=== PATIENT | male | born 1970 | race Caucasian/White ===

== ENCOUNTER → 2016-06-22 | Outpatient (CLI) | payer BC ==
[~2016-06-22] MED LIST: LAMO200T38 PO
--- NOTE | 2016-06-22 08:23 | DIAGNOSTIC IMAGING REPORT ---
MRI OF THE BRAIN WITHOUT AND WITH IV CONTRAST CLINICAL HISTORY: Meningioma. COMPARISON STUDY: MRI of the brain January 03, 2016. TECHNIQUE: Utilizing a 1.5 Traci magnet and dedicated coil, multiplanar, multiecho imaging of the brain was performed pre and postcontrast administration. IV administration of 9 mL of Gadavist contrast was uneventful. Thin cut postcontrast imaging was performed. FINDINGS: There are post surgical findings consistent with a right temporal craniotomy. Encephalomalacia within the right temporal lobe is again noted. The appearance of the resection cavity is unchanged since MRI December 24, 2015. Specifically, several enhancing nodules within the periphery of the operative bed are unchanged since prior exam. The largest is lateral to the right Meckel's cave, measuring 1.3 cm. No new nodules are identified. Numerous smaller nodules are also similar to exam of December 24, 2015. The ventricular system is stable. The basilar cisterns are patent. There are no extra-axial collections. Flow-voids for the major intracranial vessels are present. Calvarial signal is maintained. Orbits and sinuses are unremarkable. IMPRESSION: 1. No acute intracranial findings. 2. No significant change in enhancing dural based nodules along the periphery of the right temporal operative bed since MRI of January 03, 2016. The findings suggest stable residual/recurrent meningioma. Electronically signed by: Rc Payton M.D. 06/22/2016 8:22 AM Dictated Date/Time: 06/22/2016 8:02 AM
== END | disposition home or self-care (01) ==
LOC: C.MRI 07:08
PROVIDERS: ATTEND Internal Medicine
DX: D32.9 Benign neoplasm of meninges, unspecified (principal)

== ENCOUNTER → 2016-07-07 | Outpatient (CLI) | payer BC ==
[2016-07-07 14:55] VITALS: BP 126/73; PULSE 52; TEMP 36.3; O2SAT 100
--- NOTE | 2016-07-07 16:57 | Radiation Oncology Follow-Up ---
Radiation Oncology Follow-Up Date of Visit Jul 07, 2016. (Cristina Jefferson PA-C) Reason For Visit 6 month follow-up (Cristina Jefferson PA-C) Radiation Completion Date 12/09/10 (Cristina Jefferson PA-C) Diagnosis (1) Meningioma, recurrent of brain Stage: Not Applicable (Cristina Jefferson PA-C) History of Present Illness Mr. Adams is a 46-year-old male who presented with episodes of headache in the bilateral temporal region and right arm numbness. He said the headaches were occasionally associated with nausea and vomiting. The patient was seen by his eye doctor who noted on examination papilledema. The patient was seen by Dr. Montgomery for further evaluation and workup. The patient underwent an MRI which revealed a large right temporal mass measuring 8 x 5 x 6 cm. This enhancing mass was felt to be consistent with a glioblastoma multiforme. He was concern for midline shift and herniation. The patient was started on intravenous Decadron and was transferred to [facility] under the care of Dr. Hugo Cid. Dr. Gomes took the patient to the operating room on January 14, 2001 where he was able to perform a gross total resection of this mass. Grossly this had the appearance of a dural extra-axial meningioma. The lesion was excised using 3 dimensional biometric stereotactic localization procedures. Pathologic frozen section and permanent section confirmed a meningioma specimen [id number]. The patient did well until 2007 when he begin to experience seizures. He was started on Lamictal and the seizure disorder has been well-controlled since then with his last seizure in July 2008. The patient has been followed with annual MRI examinations. MRI of the brain on June 05, 2002 showed encephalomalacia changes at the base of the right temporal lobe. Post surgical changes but no evidence of recurrent disease. MRI of the brain on July 11, 2003 showed stable changes with no evidence of recurrent disease. MRI of the brain July 30, 2004 showed stable changes with encephalomalacia changes involving the right temporal horn extending into the temporal horn of the right lateral ventricle with retention cyst in the right maxillary sinus with no evidence of recurrence. MRI of the brain on June showed similar appearing picture with no evidence of recurrence. MRI of the brain on July 07, 2006 showed postsurgical changes with area of encephalomalacia. A 6.5 mm enhancing focus was noted at the medial base of the right temporal lobe abutting the sphenoid wing. This appeared to be slightly more prominent compared to the previous study, a year ago. This raised the question of possible early tumor recurrence. On June 21, 2007 the patient underwent a CT scan with and without contrast for vomiting and weakness. This showed postoperative changes and no acute changes. A repeat MRI of the brain on June 29, 2007 showed an equivocal slight increase in the size of the enhancing nodule at the base of the right medial temporal lobe abutting the sphenoid wing. This measured 6.9 mm in maximal dimension compared to 6.5 mm in June 2006. MRI of the brain on July 12, 2008 showed a peripheral probable dural based focus of enhancement at the right skull base in the area of the sphenoid wing, lateral to Meckel's cave. This is the area previously noted and showed interval increase in size and therefore felt to be suspicious for a small recurring meningioma at this level. A CT scan of the brain on July 18, 2008 following seizure showed no acute intracranial changes. MRI of the brain on July 04, 2009 showed a focal area of enhancement described previously, now measuring 8 mm likely representing evidence of recurrent meningioma. MRI of the brain July 30, 2010 showed a slight interval increase in the size of the lesion now measuring 1.2 cm , increased from a prior measurement and now stated at 1.0 cm. With this latest MRI. Dr. Cid was considering treatment options. Given the size, he felt that surgery was not necessary. He therefore suggested consideration of stereotactic radiotherapy. The patient was therefore seen by Dr. Levy who saw the patient in consultation on October 21, 2010. At their initial evaluation, the patient was felt to be a good candidate for definitive stereotactic radiosurgery. After extensive discussion with the patient and his they decided to proceed with treatment. As part of their treatment planning process a thin sliced MRI was performed the day of the planned procedure. This again showed postsurgical changes and right temporal encephalomalacia consistent with a history of craniotomy and surgery. There is a enhancing mass now measuring 1.6 x 1.2 x 1.2 cm seen along the inferior aspect of the anterior right middle cranial fossa. There is a thin linear band of hyperintensity which appears separate from this mass and extends from just anterior to the mass to the lesser wing of the sphenoid. This is difficult to determine whether or not these areas are enhancing without precontrasted imaging. However, given the history and location, these were felt these could be residual or recurrent meningiomas. After these images were carefully reviewed by the stereotactic team at [facility] it was felt that the patient in fact was not a candidate given the size and location of the lesion. He therefore contacted me on November 10 after reviewing this information with the patient and his to discuss his recommendation of conventional fractionated therapy with IMRT. He asked at that time if I would see the patient in consultation. He was treated with IMRT. Radiation was given from 12/09/2010 to 01/15/2011 he received 5400 cGy. (Cristina Jefferson PA-C) Interim History He has been doing well over the past month. He has not developed any new neurologic symptoms. He denies any problems with headaches or dizziness. He has had no change in vision. There has been no change in strength of the upper or lower extremities He continues to have the feeling of numbness of the left hand. This is well demarcated and starts in the middle of the forearm to the tips of his fingers. It happens approximate 2-4 times per month. This does not affect strength. He has reviewed this with his neurologist. In reviewing his documentation he feels these are partial seizures. He is on Lamictal and his levels are checked regularly. A follow-up MRI had been ordered through his primary care physician. This was performed on 06/22/2016. There were no acute intracranial findings. There is no significant change in the enhancing dural based nodules along the periphery of the right temporal operative bed since the MRI of 09/03/2015. Findings suggest stable recurrent/residual meningioma. Patient was aware of these results and has a CD to take to his next visit with Dr. Waterman. (Cristina Jefferson PA-C) Allergies Coded Allergies: No Known Allergies (Verified , 06/21/07) Home Medications Scheduled Lamotrigine (Lamictal), 200 MG PO BID Review of Systems Gastrointestinal: Symptoms: WNL Oral: Symptoms: No Problems Respiratory: Symptoms: WNL Urinary: Symptoms: WNL Skin: Symptoms: No Problems (Cristina Jefferson PA-C) Physical Exam Vital Signs Date Time Temp Pulse Resp B/P Pulse Ox O2 Delivery O2 Flow Rate FiO2 07/07/16 14:55 36.3 52 12 126/73 100 Pain: Patient Pain Scale: 0 - 10 Initial Pain Intensity: 0.0 Fatigue: None General Appearance: no apparent distress Eyes: normal inspection, PERRL, EOMI ENT: normal ENT inspection, hearing grossly normal Respiratory/Chest: lungs clear, no respiratory distress, no accessory muscle use Cardiovascular: regular rate, rhythm, no gallop, no murmur Neurologic/Psychiatric: private duty rn II-XII nml as tested, no motor/sensory deficits, alert, normal mood/affect Skin: warm/dry Lymphatic: no adenopathy (Cristina Jefferson PA-C) Additional Studies MRI OF THE BRAIN WITHOUT AND WITH IV CONTRAST CLINICAL HISTORY: Meningioma. COMPARISON STUDY: MRI of the brain January 03, 2016. TECHNIQUE: Utilizing a 1.5 Traci magnet and dedicated coil, multiplanar, multiecho imaging of the brain was performed pre and postcontrast administration. IV administration of 9 mL of Gadavist contrast was uneventful. Thin cut postcontrast imaging was performed. FINDINGS: There are post surgical findings consistent with a right temporal craniotomy. Encephalomalacia within the right temporal lobe is again noted. The appearance of the resection cavity is unchanged since MRI December 24, 2015. Specifically, several enhancing nodules within the periphery of the operative bed are unchanged since prior exam. The largest is lateral to the right Meckel's cave, measuring 1.3 cm. No new nodules are identified. Numerous smaller nodules are also similar to exam of December 24, 2015. The ventricular system is stable. The basilar cisterns are patent. There are no extra-axial collections. Flow-voids for the major intracranial vessels are present. Calvarial signal is maintained. Orbits and sinuses are unremarkable. IMPRESSION: 1. No acute intracranial findings. 2. No significant change in enhancing dural based nodules along the periphery of the right temporal operative bed since MRI of January 03, 2016. The findings suggest stable residual/recurrent meningioma. Electronically signed by: Rc Payton M.D. 06/22/2016 8:22 AM (Cristina Jefferson PA-C) Assessment & Plan Plan: The patient is also seen today by Dr. Roland. He reviewed the MRI images. These do appear stable. He'll continue follow-up with Dr. Waterman and Dr. Montgomery. A follow-up appointment with our office was not given. He may return if needed. He may call our office if he has any questions or concerns we'll be happy to see him. (Cristina Jefferson PA-C) I agree with note created by Cristina Jefferson PA-C. I reviewed the patient's chart and information with her. I have examined and evaluated the patient. I reviewed relevant clinical information and answered the patient's and/or family' s questions. (Veeral. Roland MD) Total Time In Follow-Up I spent 20 minutes speaking to the patient performing examination. I spent 15 minutes reviewing information completing this note. (Cristina Jefferson PA-C) I spent 15 minutes examining and counseling the patient. (Veeral. Roland MD) Copy To Landry Waterman M.D. (MEDICINE); Bertram Montgomery M.D.
== END | disposition home or self-care (01) ==
LOC: C.ONC 14:38
PROVIDERS: ATTEND Radiology Radiation Oncology
DX: Z08 Encounter for follow-up examination after completed treatment for malignant neoplasm (principal); Z92.3 Personal history of irradiation; Z85.841 Personal history of malignant neoplasm of brain

== ENCOUNTER → 2017-07-13 | Outpatient (CLI) | payer BC ==
[~2017-07-13] MED LIST changes: +GADAVIST IV PRN; +LAMO200T35 PO; -LAMO200T38 PO
--- NOTE | 2017-07-13 15:18 | DIAGNOSTIC IMAGING REPORT ---
MRI OF THE BRAIN WITHOUT AND WITH IV CONTRAST CLINICAL HISTORY: D32.9 Meningioma1 year follow-[id number] COMPARISON STUDY: 06/22/2016 TECHNIQUE: MRI of the brain was performed from the vertex to the skull base utilizing various T1 and T2 weighted sequences. Following the IV administration of 9 mL of Gadavist contrast, additional enhanced images were obtained. FINDINGS: Sagittal T1, axial diffusion, proton density and T2 weighted axial, coronal FLAIR, and pre and post axial T1-weighted images were acquired. These were supplemented with post gadolinium coronal T1 weighted images. There are postsurgical changes of a right temporal craniotomy. There is right temporal lobe encephalomalacia. There are multiple enhancing dural based nodules along the periphery of the operative bed. The largest is located lateral to Meckel's cave measuring 13 mm. No new or enlarging nodules are visualized. Axial diffusion-weighted images reveal no evidence of acute or subacute infarction. There is no evidence of ventricular dilatation. Proton density T2-weighted and FLAIR images reveal minor increased T2 signal within the right temporal lobe surrounding the operative bed. This finding remains stable There are no abnormal flow voids. IMPRESSION: 1. No significant change from the preceding study 2. Multiple enhancing dural based nodules along the periphery of the right temporal operative bed. The findings suggest stable residual/recurrent meningioma. Electronically signed by: Guido Osborn M.D. 07/13/2017 3:17 PM Dictated Date/Time: 07/13/2017 3:09 PM
== END | disposition home or self-care (01) ==
LOC: C.MRI 14:06
PROVIDERS: ATTEND Internal Medicine
DX: D32.9 Benign neoplasm of meninges, unspecified (principal)